=== PATIENT | male | born 1940 | race Caucasian/White ===

== ENCOUNTER 2017-07-17 16:22 | Inpatient (IN) ==
[2017-07-17] MEDS ORDERED: ASPIRIN 325 MG TABLET PO STA (17:48)
[2017-07-17] MEDS ORDERED: FUROSEMIDE 100 MG/10 ML VIAL IV STA (17:48)
[2017-07-17] MEDS ORDERED: MORPHINE 2 MG/1 ML SYRINGE IV STA (17:48)
[2017-07-17] MEDS ORDERED: methylPREDNISolone SOD SUC 125 MG/2 ML VIAL IV STA (17:48)
[2017-07-17] MEDS ORDERED: ONDANSETRON 4 MG/2 ML VIAL IV STA (17:48)
[2017-07-17 18:00] LABS: Basophils % 0.7 % (0.0-0.8); Eosinophils # 0.2 10*3/uL (0.0-0.87); Eosinophils % 3.2 % (0.00-10.9); Hematocrit 45.6 VOL% (42.0-52.0); Hemoglobin 14.6 GM/DL (14.0-18.0); Immature Granulocytes % 0.2 %; Immature Granulocytes Absolute 0.01 #; Lymphocytes # 1.6 10*3/uL (1.4-4.0); Lymphocytes % 29.4 % (21.2-54.2); Mean Corpuscular Hemoglobin 31 PG (27-34); Mean Corpuscular Volume 97.9 FL (87-102); Mean Platelet Volume 10.6 FL (9.6-12.0); Monocytes # 0.6 10*3/uL (0.11-0.8); Monocytes % 10.6 % (1.7-12.7); Neutrophils # 3.1 10*3/uL (1.4-7.4); Neutrophils % 55.9 % (38.7-73.9); Platelet Count 158 T/CUMM (130-400); Red Blood Count 4.66 MC/CUMM (3.8-5.5); Red Cell Distribution Width 15.4 % (9.3-17.3); White Blood Count 5.6 T/CUMM (4-12)
[2017-07-17] MEDS ORDERED: ALBUTEROL 2.5 MG/3 ML NEB RESP TX SCH (18:00)
[2017-07-17 18:09] LABS: INR 1.4; PT Patient Result 14.9 SECS
[2017-07-17 18:12] LABS: ABG Base Excess 6.1 MMOL/L (-2.5-2.5); ABG Oxygen Saturation 94.4 % (95-100); ABG PCO2 40.5 MM HG (35-48); ABG PH 7.487 (7.35-7.45); ABG PO2 68.8 MM HG (80-95); ABG TCO2 31.2 MMOL/L (23-27)
[2017-07-17] MEDS ORDERED: FUROSEMIDE 40 MG/4 ML VIAL ONE (18:17)
[2017-07-17] MEDS ORDERED: ASPIRIN 325 MG TABLET ONE (18:18)
[2017-07-17] MEDS ORDERED: MORPHINE 2 MG/1 ML SYRINGE ONE (18:18)
[2017-07-17] MEDS ORDERED: ONDANSETRON 4 MG/2 ML VIAL ONE (18:18)
[2017-07-17] MEDS ORDERED: FUROSEMIDE 20 MG/2 ML VIAL ONE (18:18)
[2017-07-17] MEDS ORDERED: methylPREDNISolone SOD SUC 125 MG/2 ML VIAL ONE (18:20)
[2017-07-17 18:23] LABS: Albumin 3.8 G/DL (3.4-5.0); Bilirubin,Total 1.5 MG/DL (0.2-1.0); Calcium 9.8 MG/DL (8.5-10.1); Magnesium 1.9 MG/DL (1.8-2.4); Osmolality,Calculated 273.4 MOS/KG (273-304); Potassium 5.2 MMOL/L (3.5-5.1); Total Protein 7.6 G/DL (6.4-8.3); Troponin I Only 0.034 NG/ML (0.00-0.045)
[2017-07-17 18:53] LABS: Apearance,Urine CLEAR (Clear); Bilirubin,Urine Negative (Negative); Blood, Urine Negative (Negative); Glucose,Urine (UA) Negative (Negative); Ketones,Urine Negative (Negative); Nitrite,Urine Negative (Negative); Protein,Urine Negative; Urine Color Straw (Yellow); Urine Specific Gravity 1.006 (1.001-1.035); Urine Urobilinogen < 2.0 EU/DL (0.2-1.0); WBC,Urine <1 /HPF (0-6)
[2017-07-18] MEDS ORDERED: ALBUTEROL/IPRATROPIUM 3 ML NEB RESP TX PRN (00:01)
[2017-07-18] MEDS ORDERED: DEXTROSE 50% 25 GM/50 ML VIAL IV PRN (00:01)
[2017-07-18] MEDS ORDERED: ONDANSETRON 4 MG/2 ML VIAL IV PRN (00:01)
[2017-07-18] MEDS ORDERED: MORPHINE 2 MG/1 ML SYRINGE IV PRN (00:01)
[2017-07-18] MEDS ORDERED: GLUCAGON 1 MG VIAL IM PRN (00:01)
[2017-07-18] MEDS ORDERED: PROMETHAZINE 25 MG/1 ML VIAL IM PRN (00:01)
[2017-07-18] MEDS ORDERED: ACETAMINOPHEN 325 MG TABLET PO PRN (00:01)
[2017-07-18] MEDS ORDERED: cefTRIAXone 1,000 MG VIAL ONE (00:26)
[2017-07-18] MEDS: SODIUM CHLORIDE 0.9% 1,000 ML IV SCH (00:36)
[2017-07-18] MEDS: cefTRIAXone 1,000 MG in SYRINGE 1 EACH IV SCH (00:37)
[2017-07-18] MEDS ORDERED: AZITHROMYCIN INJ 500 MG in SODIUM CHLORIDE 0.45% 250 ML IV SCH (01:00)
[2017-07-18] MEDS ORDERED: AZITHROMYCIN 500 MG VIAL IV ONE (01:55)
[2017-07-18] MEDS ORDERED: methylPREDNISolone SOD SUC 40 MG/1 ML VIAL ONE ×2 (02:45→09:51)
[2017-07-18] MEDS: methylPREDNISolone SOD SUC 40 MG/1 ML VIAL IV SCH ×3 (02:49→18:05)
[2017-07-18 04:31] LABS: Hematocrit 41.3 VOL% (42.0-52.0); Hemoglobin 13.2 GM/DL (14.0-18.0); Immature Granulocytes % 0.4 %; Immature Granulocytes Absolute 0.02 #; Lymphocytes # 0.2 10*3/uL (1.4-4.0); Lymphocytes % 5.2 % (21.2-54.2); Mean Corpuscular Hemoglobin 32 PG (27-34); Mean Corpuscular Volume 98.6 FL (87-102); Mean Platelet Volume 11.1 FL (9.6-12.0); Monocytes # 0.1 10*3/uL (0.11-0.8); Monocytes % 1.5 % (1.7-12.7); Neutrophils # 4.3 10*3/uL (1.4-7.4); Neutrophils % 92.9 % (38.7-73.9); Platelet Count 148 T/CUMM (130-400); Red Blood Count 4.19 MC/CUMM (3.8-5.5); Red Cell Distribution Width 15.4 % (9.3-17.3); White Blood Count 4.6 T/CUMM (4-12)
[2017-07-18 04:46] LABS: Albumin 3.5 G/DL (3.4-5.0); Calcium 8.9 MG/DL (8.5-10.1); Magnesium 1.7 MG/DL (1.8-2.4); Osmolality,Calculated 290.5 MOS/KG (273-304); Potassium 4.3 MMOL/L (3.5-5.1); Total Protein 6.9 G/DL (6.4-8.3); VLDL CHOLESTEROL 15.2 MG/DL
[2017-07-18 05:45] LABS: Eosinophils 2 % (0-10); Hypochromasia 1+; Lymphocytes 4 % (20-55); Segmented Neutrophils 90 % (50-85); Total Cells Counted 100
[2017-07-18 05:46] LABS: Microcytosis 1+
[2017-07-18] MEDS ORDERED: ENOXAPARIN 40 MG/0.4 ML SYRINGE ONE (06:06)
[2017-07-18] MEDS: ENOXAPARIN 40 MG/0.4 ML SYRINGE SUBCUT SCH (06:09)
[2017-07-18] MEDS ORDERED: FUROSEMIDE 20 MG/2 ML VIAL ONE (08:15)
[2017-07-18] MEDS: FUROSEMIDE 20 MG/2 ML VIAL IV SCH ×2 (08:20→18:12)
[2017-07-18] MEDS ORDERED: DOCUSATE SODIUM 100 MG CAPSULE ONE (08:51)
[2017-07-18] MEDS ORDERED: PANTOPRAZOLE 40 MG TABLET PO ONE (08:52)
[2017-07-18] MEDS: PANTOPRAZOLE 40 MG TABLET PO SCH (09:08)
[2017-07-18] MEDS: DOCUSATE SODIUM 100 MG CAPSULE PO SCH ×2 (09:08→22:03)
[2017-07-18] MEDS ORDERED: INSULIN REGULAR 100 UNIT/ML ONE ×2 (09:29→11:40)
[2017-07-18] MEDS: INSULIN REGULAR 100 UNIT/ML SUBCUT SCH ×4 (09:33→22:03)
[2017-07-18] MEDS ORDERED: FUROSEMIDE 40 MG/4 ML VIAL ONE (17:45)
[2017-07-18] MEDS: WARFARIN 3 MG TABLET PO SCH (18:05)
[2017-07-18] MEDS: rOPINIRole 1 MG TABLET PO SCH (18:05)
[2017-07-18 18:35] LABS: Troponin I Only 0.031 NG/ML (0.00-0.045)
[2017-07-18] MEDS ORDERED: SACUBITRIL/VALSARTAN 49-51 MG TABLET PO SCH (21:00)
[2017-07-18] MEDS: ATORVASTATIN 80 MG TABLET PO SCH (22:03)
[2017-07-18] MEDS: SACUBITRIL/VALSARTAN 49-51 MG TABLET PO SCH (22:04)
[2017-07-18] MEDS: GLIMEPIRIDE 2 MG TABLET PO SCH (22:04)
[2017-07-18] MEDS: clonazePAM 0.5 MG TABLET PO PRN (22:08)
[2017-07-18 23:39] LABS: Troponin I Only 0.072 NG/ML (0.00-0.045)
[2017-07-19] MEDS: SODIUM CHLORIDE 0.9% 1,000 ML IV SCH (00:36)
[2017-07-19] MEDS: methylPREDNISolone SOD SUC 40 MG/1 ML VIAL IV SCH ×3 (01:14→18:38)
[2017-07-19] MEDS: cefTRIAXone 1,000 MG in SYRINGE 1 EACH IV SCH (01:14)
[2017-07-19 04:07] LABS: CKMB % 2.4 %
[2017-07-19 04:08] LABS: Troponin I Only 0.273 NG/ML (0.00-0.045)
[2017-07-19 04:20] LABS: Calcium 8.8 MG/DL (8.5-10.1); Magnesium 2.1 MG/DL (1.8-2.4); Osmolality,Calculated 294.2 MOS/KG (273-304); Potassium 4.1 MMOL/L (3.5-5.1)
[2017-07-19] MEDS: ENOXAPARIN 40 MG/0.4 ML SYRINGE SUBCUT SCH (06:54)
[2017-07-19 07:09] LABS: INR 1.4; PT Patient Result 15.1 SECS
[2017-07-19] MEDS ORDERED: WARFARIN 5 MG TABLET PO ONE (07:17)
[2017-07-19] MEDS ORDERED: FUROSEMIDE 40 MG/4 ML VIAL IV SCH (08:00)
[2017-07-19] MEDS: INSULIN REGULAR 100 UNIT/ML SUBCUT SCH ×4 (09:00→21:35)
[2017-07-19] MEDS: FUROSEMIDE 40 MG/4 ML VIAL IV SCH (09:00)
[2017-07-19 12:05] LABS: CKMB % 2.8 %
[2017-07-19 12:09] LABS: Troponin I Only 0.63 NG/ML (0.00-0.045)
[2017-07-19] MEDS: VENLAFAXINE XR 75 MG CAPSULE PO SCH (13:41)
[2017-07-19 13:42] LABS: CKMB % 2.7 %
[2017-07-19] MEDS: ALLOPURINOL 100 MG TABLET PO SCH (13:42)
[2017-07-19] MEDS: ASPIRIN EC 325 MG TABLET PO SCH (13:42)
[2017-07-19] MEDS: POTASSIUM CHLORIDE 10 MEQ TABLET PO SCH (13:42)
[2017-07-19] MEDS: SACUBITRIL/VALSARTAN 49-51 MG TABLET PO SCH ×2 (13:42→21:56)
[2017-07-19 13:43] LABS: Troponin I Only 0.612 NG/ML (0.00-0.045)
[2017-07-19] MEDS: PANTOPRAZOLE 40 MG TABLET PO SCH (13:43)
[2017-07-19] MEDS: ATENOLOL 25 MG TABLET PO SCH (13:43)
[2017-07-19] MEDS: GLIMEPIRIDE 2 MG TABLET PO SCH ×2 (13:43→21:55)
[2017-07-19] MEDS: DOCUSATE SODIUM 100 MG CAPSULE PO SCH ×2 (13:43→21:57)
[2017-07-19] MEDS: WARFARIN 3 MG TABLET PO SCH (18:37)
[2017-07-19] MEDS: clonazePAM 0.5 MG TABLET PO PRN (18:37)
[2017-07-19] MEDS: rOPINIRole 1 MG TABLET PO SCH (18:38)
[2017-07-19] MEDS: INSULIN GLARGINE 100 UNIT/ML SUBCUT SCH (21:36)
[2017-07-19] MEDS: ATORVASTATIN 80 MG TABLET PO SCH (21:56)
[2017-07-19] MEDS: CLORAZEPATE 3.75 MG TABLET PO PRN (21:56)
[2017-07-20] MEDS: SODIUM CHLORIDE 0.9% 1,000 ML IV SCH ×2 (00:22→23:58)
[2017-07-20] MEDS: methylPREDNISolone SOD SUC 40 MG/1 ML VIAL IV SCH ×3 (04:15→22:51)
[2017-07-20] MEDS: cefTRIAXone 1,000 MG in SYRINGE 1 EACH IV SCH (04:16)
[2017-07-20 04:28] LABS: Basophils % 0.1 % (0.0-0.8); Hematocrit 40.7 VOL% (42.0-52.0); Hemoglobin 13.2 GM/DL (14.0-18.0); Immature Granulocytes % 0.5 %; Immature Granulocytes Absolute 0.06 #; Lymphocytes # 0.6 10*3/uL (1.4-4.0); Lymphocytes % 5.2 % (21.2-54.2); Mean Corpuscular HGB Conc 32.4 GM/DL (32-36); Mean Corpuscular Hemoglobin 32 PG (27-34); Mean Corpuscular Volume 98.5 FL (87-102); Mean Platelet Volume 10.9 FL (9.6-12.0); Monocytes # 0.3 10*3/uL (0.11-0.8); Neutrophils # 10.2 10*3/uL (1.4-7.4); Neutrophils % 91.2 % (38.7-73.9); Platelet Count 165 T/CUMM (130-400); Red Blood Count 4.13 MC/CUMM (3.8-5.5); Red Cell Distribution Width 15.5 % (9.3-17.3); White Blood Count 11.2 T/CUMM (4-12)
[2017-07-20 05:06] LABS: Calcium 8.6 MG/DL (8.5-10.1); Magnesium 2.2 MG/DL (1.8-2.4); Potassium 4.1 MMOL/L (3.5-5.1)
[2017-07-20 05:11] LABS: INR 1.7; PT Patient Result 17.7 SECS
[2017-07-20 05:12] LABS: Lymphocytes 5 % (20-55); Segmented Neutrophils 93 % (50-85); Total Cells Counted 100
[2017-07-20 05:13] LABS: Hypochromasia 1+; Microcytosis 1+; Ovalocytes Slight; Platelet Estimate Adequate
[2017-07-20] MEDS: INSULIN REGULAR 100 UNIT/ML SUBCUT SCH ×4 (09:38→22:50)
[2017-07-20] MEDS: VENLAFAXINE XR 75 MG CAPSULE PO SCH (10:54)
[2017-07-20] MEDS: PANTOPRAZOLE 40 MG TABLET PO SCH (10:55)
[2017-07-20] MEDS: ATENOLOL 25 MG TABLET PO SCH (10:55)
[2017-07-20] MEDS: GLIMEPIRIDE 2 MG TABLET PO SCH ×2 (10:55→22:53)
[2017-07-20] MEDS: ASPIRIN EC 325 MG TABLET PO SCH (10:55)
[2017-07-20] MEDS: SACUBITRIL/VALSARTAN 49-51 MG TABLET PO SCH ×2 (10:55→22:52)
[2017-07-20] MEDS: FUROSEMIDE 40 MG/4 ML VIAL IV SCH (10:56)
[2017-07-20] MEDS: POTASSIUM CHLORIDE 10 MEQ TABLET PO SCH (10:56)
[2017-07-20] MEDS: DOCUSATE SODIUM 100 MG CAPSULE PO SCH ×2 (10:56→22:51)
[2017-07-20] MEDS: ALLOPURINOL 100 MG TABLET PO SCH (10:56)
[2017-07-20] MEDS: WARFARIN 3 MG TABLET PO SCH (18:26)
[2017-07-20] MEDS: rOPINIRole 1 MG TABLET PO SCH (18:26)
[2017-07-20] MEDS: CLORAZEPATE 3.75 MG TABLET PO PRN (18:27)
[2017-07-20] MEDS: INSULIN GLARGINE 100 UNIT/ML SUBCUT SCH (22:50)
[2017-07-20] MEDS: ATORVASTATIN 80 MG TABLET PO SCH (22:50)
[2017-07-21 05:07] LABS: Hematocrit 44.9 VOL% (42.0-52.0); Hemoglobin 14.6 GM/DL (14.0-18.0); Immature Granulocytes % 0.4 %; Immature Granulocytes Absolute 0.04 #; Lymphocytes # 0.6 10*3/uL (1.4-4.0); Lymphocytes % 6.1 % (21.2-54.2); Mean Corpuscular HGB Conc 32.5 GM/DL (32-36); Mean Corpuscular Hemoglobin 32 PG (27-34); Mean Corpuscular Volume 97.2 FL (87-102); Monocytes # 0.3 10*3/uL (0.11-0.8); Monocytes % 3.4 % (1.7-12.7); Neutrophils % 90.1 % (38.7-73.9); Platelet Count 179 T/CUMM (130-400); Red Blood Count 4.62 MC/CUMM (3.8-5.5); Red Cell Distribution Width 15.3 % (9.3-17.3)
[2017-07-21 05:14] LABS: INR 2.7
[2017-07-21 05:23] LABS: PT Patient Result 27.7 SECS
[2017-07-21 05:46] LABS: Calcium 8.7 MG/DL (8.5-10.1); Magnesium 2.3 MG/DL (1.8-2.4); Osmolality,Calculated 294.2 MOS/KG (273-304); Potassium 4.2 MMOL/L (3.5-5.1)
[2017-07-21] MEDS: cefTRIAXone 1,000 MG in SYRINGE 1 EACH IV SCH (05:46)
[2017-07-21 05:47] LABS: Calcium 8.8 MG/DL (8.5-10.1); Osmolality,Calculated 296.2 MOS/KG (273-304); Potassium 4.2 MMOL/L (3.5-5.1)
[2017-07-21] MEDS: methylPREDNISolone SOD SUC 40 MG/1 ML VIAL IV SCH ×3 (05:51→21:34)
[2017-07-21] MEDS: ASPIRIN EC 325 MG TABLET PO SCH (08:57)
[2017-07-21] MEDS: PANTOPRAZOLE 40 MG TABLET PO SCH (08:57)
[2017-07-21] MEDS: clonazePAM 0.5 MG TABLET PO PRN (08:58)
[2017-07-21] MEDS: SACUBITRIL/VALSARTAN 49-51 MG TABLET PO SCH ×2 (08:58→21:36)
[2017-07-21] MEDS: GLIMEPIRIDE 2 MG TABLET PO SCH ×2 (08:58→21:36)
[2017-07-21] MEDS: DOCUSATE SODIUM 100 MG CAPSULE PO SCH ×2 (08:58→21:36)
[2017-07-21] MEDS: ATENOLOL 25 MG TABLET PO SCH (08:58)
[2017-07-21] MEDS: POTASSIUM CHLORIDE 10 MEQ TABLET PO SCH (08:58)
[2017-07-21] MEDS: VENLAFAXINE XR 75 MG CAPSULE PO SCH (08:58)
[2017-07-21] MEDS: INSULIN REGULAR 100 UNIT/ML SUBCUT SCH ×4 (08:59→21:34)
[2017-07-21] MEDS: FUROSEMIDE 40 MG/4 ML VIAL IV SCH ×2 (08:59→16:24)
[2017-07-21] MEDS: ALLOPURINOL 100 MG TABLET PO SCH (08:59)
[2017-07-21] MEDS: ALBUTEROL/IPRATROPIUM 3 ML NEB RESP TX SCH ×3 (12:13→21:26)
[2017-07-21] MEDS: rOPINIRole 1 MG TABLET PO SCH (18:42)
[2017-07-21] MEDS: CLORAZEPATE 3.75 MG TABLET PO PRN (18:43)
[2017-07-21] MEDS: ACETYLCYSTEINE 600 MG CAPSULE PO SCH (21:35)
[2017-07-21] MEDS: INSULIN GLARGINE 100 UNIT/ML SUBCUT SCH (21:35)
[2017-07-21] MEDS: ATORVASTATIN 80 MG TABLET PO SCH (21:36)
[2017-07-21] MEDS: CARVEDILOL 3.125 MG TABLET PO SCH (21:39)
[2017-07-22] MEDS: SODIUM CHLORIDE 0.9% 1,000 ML IV SCH
[2017-07-22] MEDS: ALBUTEROL/IPRATROPIUM 3 ML NEB RESP TX SCH ×7 (00:42→22:54)
[2017-07-22] MEDS: methylPREDNISolone SOD SUC 40 MG/1 ML VIAL IV SCH ×3 (04:52→21:55)
[2017-07-22] MEDS: cefTRIAXone 1,000 MG in SYRINGE 1 EACH IV SCH (04:52)
[2017-07-22 04:57] LABS: Basophils % 0.1 % (0.0-0.8); Hematocrit 44.6 VOL% (42.0-52.0); Hemoglobin 14.8 GM/DL (14.0-18.0); Immature Granulocytes % 0.6 %; Immature Granulocytes Absolute 0.07 #; Lymphocytes # 0.3 10*3/uL (1.4-4.0); Lymphocytes % 2.5 % (21.2-54.2); Mean Corpuscular HGB Conc 33.2 GM/DL (32-36); Mean Corpuscular Hemoglobin 31 PG (27-34); Mean Corpuscular Volume 94.3 FL (87-102); Mean Platelet Volume 10.9 FL (9.6-12.0); Monocytes # 0.5 10*3/uL (0.11-0.8); Neutrophils % 91.8 % (38.7-73.9); Platelet Count 173 T/CUMM (130-400); Red Blood Count 4.73 MC/CUMM (3.8-5.5); Red Cell Distribution Width 15.2 % (9.3-17.3); White Blood Count 10.9 T/CUMM (4-12)
[2017-07-22 05:09] LABS: INR 3.4
[2017-07-22 05:26] LABS: Calcium 8.7 MG/DL (8.5-10.1); Osmolality,Calculated 293.5 MOS/KG (273-304); Potassium 3.7 MMOL/L (3.5-5.1)
[2017-07-22 05:27] LABS: Calcium 8.7 MG/DL (8.5-10.1); Magnesium 2.2 MG/DL (1.8-2.4); Osmolality,Calculated 295.4 MOS/KG (273-304); Potassium 3.7 MMOL/L (3.5-5.1)
[2017-07-22 06:05] LABS: Anisocytosis 1+; Band Neutrophils 1 % (0-10); Lymphocytes 3 % (20-55); Myelocytes 1 %; Segmented Neutrophils 93 % (50-85); Total Cells Counted 100
[2017-07-22 06:06] LABS: Platelet Estimate Normal; Poikilocytosis Few
[2017-07-22] MEDS: ACETYLCYSTEINE 600 MG CAPSULE PO SCH ×2 (08:56→21:55)
[2017-07-22] MEDS: PANTOPRAZOLE 40 MG TABLET PO SCH (08:56)
[2017-07-22] MEDS: VENLAFAXINE XR 75 MG CAPSULE PO SCH (08:57)
[2017-07-22] MEDS: CARVEDILOL 3.125 MG TABLET PO SCH ×2 (08:57→21:55)
[2017-07-22] MEDS: DOCUSATE SODIUM 100 MG CAPSULE PO SCH ×2 (08:57→21:55)
[2017-07-22] MEDS: GLIMEPIRIDE 2 MG TABLET PO SCH ×2 (08:57→21:55)
[2017-07-22] MEDS: clonazePAM 0.5 MG TABLET PO PRN ×2 (08:57→21:57)
[2017-07-22] MEDS: SACUBITRIL/VALSARTAN 49-51 MG TABLET PO SCH ×2 (08:57→21:55)
[2017-07-22] MEDS: POTASSIUM CHLORIDE 10 MEQ TABLET PO SCH (08:57)
[2017-07-22] MEDS: ASPIRIN EC 325 MG TABLET PO SCH (08:57)
[2017-07-22] MEDS: INSULIN REGULAR 100 UNIT/ML SUBCUT SCH ×4 (08:57→21:56)
[2017-07-22] MEDS: ALLOPURINOL 100 MG TABLET PO SCH (08:57)
[2017-07-22] MEDS: FUROSEMIDE 40 MG/4 ML VIAL IV SCH (08:58)
[2017-07-22] MEDS ORDERED: SODIUM CHLORIDE 0.9% 250 ML IV ONE (10:09)
[2017-07-22] MEDS ORDERED: SODIUM CHLORIDE 0.9% 1,000 ML IV SCH (10:30)
[2017-07-22] MEDS ORDERED: MAGNESIUM SULF RIDER 2 GM in PREMIX 1 EACH IV PRN (10:55)
[2017-07-22] MEDS ORDERED: POTASSIUM CHLORIDE RIDER 10 MEQ in PREMIX 1 EACH IV PRN (10:55)
[2017-07-22] MEDS ORDERED: POTASSIUM CHLORIDE 20 MEQ TABLET PO PRN (11:19)
[2017-07-22] MEDS: FUROSEMIDE 40 MG TABLET PO SCH ×2 (15:27→16:26)
[2017-07-22] MEDS: rOPINIRole 1 MG TABLET PO SCH (18:10)
[2017-07-22] MEDS: ATORVASTATIN 80 MG TABLET PO SCH (21:55)
[2017-07-22] MEDS: INSULIN GLARGINE 100 UNIT/ML SUBCUT SCH (21:55)
[2017-07-23] MEDS: ALBUTEROL/IPRATROPIUM 3 ML NEB RESP TX SCH ×5 (03:23→20:04)
[2017-07-23 05:15] LABS: Hematocrit 44.9 VOL% (42.0-52.0); Hemoglobin 14.7 GM/DL (14.0-18.0); Immature Granulocytes % 0.4 %; Immature Granulocytes Absolute 0.04 #; Lymphocytes # 0.3 10*3/uL (1.4-4.0); Lymphocytes % 2.8 % (21.2-54.2); Mean Corpuscular HGB Conc 32.7 GM/DL (32-36); Mean Corpuscular Hemoglobin 31 PG (27-34); Mean Corpuscular Volume 95.7 FL (87-102); Mean Platelet Volume 10.9 FL (9.6-12.0); Monocytes # 0.4 10*3/uL (0.11-0.8); Monocytes % 4.4 % (1.7-12.7); Neutrophils # 8.4 10*3/uL (1.4-7.4); Neutrophils % 92.4 % (38.7-73.9); Platelet Count 163 T/CUMM (130-400); Red Blood Count 4.69 MC/CUMM (3.8-5.5); Red Cell Distribution Width 15.1 % (9.3-17.3); White Blood Count 9.1 T/CUMM (4-12)
[2017-07-23 05:26] LABS: INR 2.6
[2017-07-23 05:28] LABS: PT Patient Result 26.8 SECS
[2017-07-23 05:41] LABS: Lymphocytes 1 % (20-55); Segmented Neutrophils 96 % (50-85); Total Cells Counted 100
[2017-07-23 05:42] LABS: Hypochromasia 1+
[2017-07-23 05:44] LABS: Microcytosis Slight
[2017-07-23 05:53] LABS: Calcium 8.5 MG/DL (8.5-10.1); Magnesium 2.3 MG/DL (1.8-2.4); Osmolality,Calculated 296.1 MOS/KG (273-304); Potassium 4.2 MMOL/L (3.5-5.1)
[2017-07-23] MEDS: cefTRIAXone 1,000 MG in SYRINGE 1 EACH IV SCH (06:17)
[2017-07-23] MEDS: methylPREDNISolone SOD SUC 40 MG/1 ML VIAL IV SCH ×3 (06:17→21:06)
[2017-07-23] MEDS ORDERED: HEPARIN/NACL 0.9% 2 UNITS/ML 2,000 ML IV ONE (06:57)
[2017-07-23] MEDS ORDERED: LIDOCAINE 1% 20 ML VIAL ONE (06:57)
[2017-07-23] MEDS ORDERED: diphenhydrAMINE CAP 50 MG CAPSULE PO ONE (07:00)
[2017-07-23] MEDS ORDERED: DIAZEPAM 5 MG TABLET PO ONE (07:00)
[2017-07-23] MEDS: CARVEDILOL 3.125 MG TABLET PO SCH ×3 (07:04→21:05)
[2017-07-23] MEDS: ASPIRIN EC 325 MG TABLET PO SCH ×2 (07:04→11:07)
[2017-07-23] MEDS ORDERED: MIDAZOLAM 2 MG/2 ML VIAL ONE (08:13)
[2017-07-23] MEDS ORDERED: HYDROmorphone 2 MG/1 ML VIAL ONE (08:13)
[2017-07-23] MEDS: INSULIN REGULAR 100 UNIT/ML SUBCUT SCH ×4 (10:27→21:06)
[2017-07-23] MEDS: SACUBITRIL/VALSARTAN 49-51 MG TABLET PO SCH ×2 (11:05→21:04)
[2017-07-23] MEDS: ALLOPURINOL 100 MG TABLET PO SCH (11:06)
[2017-07-23] MEDS: ACETYLCYSTEINE 600 MG CAPSULE PO SCH ×2 (11:06→21:07)
[2017-07-23] MEDS: FUROSEMIDE 40 MG TABLET PO SCH ×2 (11:06→16:05)
[2017-07-23] MEDS: PANTOPRAZOLE 40 MG TABLET PO SCH (11:06)
[2017-07-23] MEDS: VENLAFAXINE XR 75 MG CAPSULE PO SCH (11:06)
[2017-07-23] MEDS: GLIMEPIRIDE 2 MG TABLET PO SCH ×2 (11:06→21:05)
[2017-07-23] MEDS: DOCUSATE SODIUM 100 MG CAPSULE PO SCH ×2 (11:07→21:05)
[2017-07-23] MEDS: rOPINIRole 1 MG TABLET PO SCH (18:26)
[2017-07-23] MEDS: ATORVASTATIN 80 MG TABLET PO SCH (21:03)
[2017-07-23] MEDS: CLORAZEPATE 3.75 MG TABLET PO PRN (21:05)
[2017-07-23] MEDS: INSULIN GLARGINE 100 UNIT/ML SUBCUT SCH (21:06)
[2017-07-24] MEDS: ALBUTEROL/IPRATROPIUM 3 ML NEB RESP TX SCH ×6 (01:43→20:17)
[2017-07-24 04:51] LABS: Calcium 8.6 MG/DL (8.5-10.1); Osmolality,Calculated 297.1 MOS/KG (273-304); Potassium 4.7 MMOL/L (3.5-5.1)
[2017-07-24] MEDS: cefTRIAXone 1,000 MG in SYRINGE 1 EACH IV SCH (05:38)
[2017-07-24] MEDS: methylPREDNISolone SOD SUC 40 MG/1 ML VIAL IV SCH ×3 (05:39→21:26)
[2017-07-24] MEDS: SACUBITRIL/VALSARTAN 49-51 MG TABLET PO SCH ×2 (09:56→21:23)
[2017-07-24] MEDS: ASPIRIN EC 325 MG TABLET PO SCH (09:56)
[2017-07-24] MEDS: PANTOPRAZOLE 40 MG TABLET PO SCH (09:56)
[2017-07-24] MEDS: GLIMEPIRIDE 2 MG TABLET PO SCH ×2 (09:56→21:24)
[2017-07-24] MEDS: ACETYLCYSTEINE 600 MG CAPSULE PO SCH ×2 (09:56→21:23)
[2017-07-24] MEDS: VENLAFAXINE XR 75 MG CAPSULE PO SCH (09:56)
[2017-07-24] MEDS: DOCUSATE SODIUM 100 MG CAPSULE PO SCH ×2 (09:56→21:24)
[2017-07-24] MEDS: ALLOPURINOL 100 MG TABLET PO SCH (09:56)
[2017-07-24] MEDS: FUROSEMIDE 40 MG TABLET PO SCH ×2 (09:56→16:30)
[2017-07-24] MEDS: INSULIN REGULAR 100 UNIT/ML SUBCUT SCH ×4 (09:57→21:29)
[2017-07-24] MEDS: CARVEDILOL 3.125 MG TABLET PO SCH ×2 (09:57→21:24)
[2017-07-24] MEDS: CETIRIZINE 10 MG TABLET PO SCH (12:09)
[2017-07-24] MEDS ORDERED: MORPHINE 10 MG/1 ML VIAL IV PRN (14:30)
[2017-07-24] MEDS: rOPINIRole 1 MG TABLET PO SCH (18:00)
[2017-07-24] MEDS: clonazePAM 0.5 MG TABLET PO PRN (21:23)
[2017-07-24] MEDS: CLORAZEPATE 3.75 MG TABLET PO PRN (21:24)
[2017-07-24] MEDS: ATORVASTATIN 80 MG TABLET PO SCH (21:24)
[2017-07-24] MEDS: INSULIN GLARGINE 100 UNIT/ML SUBCUT SCH (21:28)
[2017-07-25] MEDS: ALBUTEROL/IPRATROPIUM 3 ML NEB RESP TX SCH ×4 (00:55→11:03)
[2017-07-25 05:01] LABS: Basophils % 0.1 % (0.0-0.8); Hematocrit 44.7 VOL% (42.0-52.0); Hemoglobin 14.8 GM/DL (14.0-18.0); Immature Granulocytes % 0.7 %; Immature Granulocytes Absolute 0.06 #; Lymphocytes # 0.3 10*3/uL (1.4-4.0); Lymphocytes % 3.2 % (21.2-54.2); Mean Corpuscular HGB Conc 33.1 GM/DL (32-36); Mean Corpuscular Hemoglobin 32 PG (27-34); Mean Corpuscular Volume 95.9 FL (87-102); Mean Platelet Volume 10.6 FL (9.6-12.0); Monocytes # 0.4 10*3/uL (0.11-0.8); Monocytes % 4.7 % (1.7-12.7); Neutrophils # 7.6 10*3/uL (1.4-7.4); Neutrophils % 91.3 % (38.7-73.9); Platelet Count 148 T/CUMM (130-400); Red Blood Count 4.66 MC/CUMM (3.8-5.5); Red Cell Distribution Width 15.3 % (9.3-17.3); White Blood Count 8.3 T/CUMM (4-12)
[2017-07-25 05:09] LABS: INR 1.5; PT Patient Result 15.5 SECS
[2017-07-25 05:23] LABS: Giant Platelets Few; Hypochromasia 1+; Lymphocytes 3 % (20-55); Microcytosis Slight; Platelet Estimate Normal; Segmented Neutrophils 94 % (50-85); Total Cells Counted 100
[2017-07-25 05:28] LABS: Calcium 8.6 MG/DL (8.5-10.1); Magnesium 2.4 MG/DL (1.8-2.4); Osmolality,Calculated 301.2 MOS/KG (273-304)
[2017-07-25] MEDS: cefTRIAXone 1,000 MG in SYRINGE 1 EACH IV SCH (05:49)
[2017-07-25] MEDS: methylPREDNISolone SOD SUC 40 MG/1 ML VIAL IV SCH (05:49)
[2017-07-25] MEDS: INSULIN REGULAR 100 UNIT/ML SUBCUT SCH ×2 (09:04→13:37)
[2017-07-25] MEDS: VENLAFAXINE XR 75 MG CAPSULE PO SCH (09:04)
[2017-07-25] MEDS: ASPIRIN EC 325 MG TABLET PO SCH (09:04)
[2017-07-25] MEDS: CARVEDILOL 3.125 MG TABLET PO SCH (09:05)
[2017-07-25] MEDS: FUROSEMIDE 40 MG TABLET PO SCH (09:05)
[2017-07-25] MEDS: CETIRIZINE 10 MG TABLET PO SCH (09:05)
[2017-07-25] MEDS: ALLOPURINOL 100 MG TABLET PO SCH (09:05)
[2017-07-25] MEDS: GLIMEPIRIDE 2 MG TABLET PO SCH (09:05)
[2017-07-25] MEDS: PANTOPRAZOLE 40 MG TABLET PO SCH (09:05)
[2017-07-25] MEDS: SACUBITRIL/VALSARTAN 49-51 MG TABLET PO SCH (09:05)
[2017-07-25] MEDS: DOCUSATE SODIUM 100 MG CAPSULE PO SCH (09:16)
[2017-07-25] MEDS: ACETYLCYSTEINE 600 MG CAPSULE PO SCH (09:16)
[2017-07-25 12:10] VITALS: BP 102/59
== END 2017-07-25 13:54 | disposition home or self-care (01) | DRG 286 ==
LOC: N.ED 16:22 → N.EDINP 21:16 → N.TELEN 07-18 13:42
PROVIDERS: ADMIT Family Medicine; ATTEND Family Medicine

== ENCOUNTER 2020-11-05 12:41 | Inpatient (IN) ==
[2020-11-05] MEDS ORDERED: SODIUM CHLORIDE 0.9% 1,000 ML IV STA (12:58)
[2020-11-05] MEDS ORDERED: VANCOMYCIN INJ 1,500 MG in SODIUM CHLORIDE 0.9% 250 ML IV STA (13:02)
[2020-11-05] MEDS ORDERED: PIPERACILLIN/TAZOBACTAM 3,375 MG in SODIUM CHLORIDE 0.9% 100 ML IV STA (13:02)
[2020-11-05 13:27] LABS: Basophils % 0.2 % (0.0-0.8); Hematocrit 44.2 VOL% (42.0-52.0); Hemoglobin 14.1 GM/DL (14.0-18.0); Immature Granulocytes % 0.8 %; Immature Granulocytes Absolute 0.14 #; Lymphocytes # 0.7 10*3/uL (1.4-4.0); Mean Corpuscular HGB Conc 31.9 GM/DL (32-36); Mean Corpuscular Volume 99.5 FL (87-102); Mean Platelet Volume 10.7 FL (9.6-12.0); Monocytes % 5.3 % (1.7-12.7); Neutrophils % 89.7 % (38.7-73.9); Platelet Count 147 T/CUMM (130-400); Red Blood Count 4.44 MC/CUMM (3.8-5.5); Red Cell Distribution Width 15.8 % (9.3-17.3); White Blood Count 17.7 T/CUMM (4-12)
[2020-11-05 13:36] LABS: INR 1.3; PT Patient Result 14.7 SECS (9.8-11.9); Partial Thromboplastin Time 32.8 SECS (23.9-33.8)
[2020-11-05 13:53] LABS: Albumin 3.3 G/DL (3.4-5.0); Bilirubin,Total 1.2 MG/DL (0.2-1.0); Calcium 9.3 MG/DL (8.5-10.1); Osmolality,Calculated 287.2 MOS/KG (273-304); Potassium 4.1 MMOL/L (3.5-5.1); Total Protein 7.5 G/DL (6.4-8.2)
[2020-11-05 14:22] LABS: Band Neutrophils 3 % (0-10); Lymphocytes 6 % (20-55); Segmented Neutrophils 88 % (50-85); Total Cells Counted 100
[2020-11-05 14:23] LABS: Microcytosis Slight; Ovalocytes Slight; Platelet Estimate Normal
[2020-11-05 14:38] LABS: Bilirubin,Urine Negative (Negative); Blood, Urine Small mg/dL (Negative); Glucose,Urine (UA) Negative (Negative); Ketones,Urine Negative (Negative); Mucus,Urine Occasional /LPF (Occasional); Nitrite,Urine Negative (Negative); Protein,Urine 30 MG/DL; RBC,Urine 5 /HPF (0-4); Urine Appearance CLEAR (Clear); Urine Color Yellow (Yellow); Urine Specific Gravity 1.013 (1.001-1.035); Urine Urobilinogen < 2.0 EU/DL (0.2-1.0)
[2020-11-05] MEDS ORDERED: ACETAMINOPHEN 325 MG TABLET PO PRN (15:21)
[2020-11-05] MEDS ORDERED: GLUCAGON 1 MG VIAL IM PRN (15:21)
[2020-11-05] MEDS ORDERED: ONDANSETRON 4 MG/2 ML VIAL IV PRN (15:21)
[2020-11-05] MEDS ORDERED: DEXTROSE 50% 25 GM/50 ML VIAL IV PRN (15:21)
[2020-11-05] MEDS ORDERED: clonazePAM 0.5 MG TABLET PO PRN (15:25)
[2020-11-05] MEDS ORDERED: NITROGLYCERIN SL 0.4 MG TABLET SL PRN (15:28)
[2020-11-05] MEDS: FUROSEMIDE 40 MG TABLET PO SCH (17:26)
[2020-11-05] MEDS: INSULIN LISPRO 100 UNIT/ML SUBCUT SCH ×2 (17:30→20:49)
[2020-11-05] MEDS: SODIUM CHLORIDE 0.9% 1,000 ML IV SCH (19:08)
[2020-11-05] MEDS: ALBUTEROL/IPRATROPIUM 3 ML NEB RESP TX SCH (20:45)
[2020-11-05] MEDS: SACUBITRIL/VALSARTAN 49-51 MG TABLET PO SCH (20:50)
[2020-11-05] MEDS: INSULIN GLARGINE 100 UNIT/ML SUBCUT SCH (20:50)
[2020-11-05] MEDS: rOPINIRole 1 MG TABLET PO SCH (20:51)
[2020-11-05] MEDS: DOCUSATE SODIUM 100 MG CAPSULE PO SCH (20:51)
[2020-11-05] MEDS: carvediloL 3.125 MG TABLET PO SCH (20:51)
[2020-11-05] MEDS: ATORVASTATIN 80 MG TABLET PO SCH (20:51)
[2020-11-06] MEDS: PIPERACILLIN/TAZOBACTAM 3,375 MG in SODIUM CHLORIDE 0.9% 100 ML IV SCH ×4 (00:38→17:55)
[2020-11-06 05:13] LABS: INR 1.4; PT Patient Result 15.1 SECS (9.8-11.9)
[2020-11-06] MEDS: FUROSEMIDE 40 MG TABLET PO SCH ×2 (08:17→15:42)
[2020-11-06] MEDS: INSULIN LISPRO 100 UNIT/ML SUBCUT SCH ×4 (08:32→21:20)
[2020-11-06] MEDS: ALBUTEROL/IPRATROPIUM 3 ML NEB RESP TX SCH ×3 (09:28→23:19)
[2020-11-06] MEDS: SACUBITRIL/VALSARTAN 49-51 MG TABLET PO SCH ×2 (10:20→21:20)
[2020-11-06] MEDS: carvediloL 3.125 MG TABLET PO SCH ×2 (10:21→21:20)
[2020-11-06] MEDS: PANTOPRAZOLE 40 MG TABLET PO SCH (10:21)
[2020-11-06] MEDS: DOCUSATE SODIUM 100 MG CAPSULE PO SCH ×2 (10:23→21:20)
[2020-11-06] MEDS: allopurinoL 100 MG TABLET PO SCH (10:23)
[2020-11-06] MEDS: ASPIRIN EC 325 MG TABLET PO SCH (10:23)
[2020-11-06] MEDS: VENLAFAXINE XR 75 MG CAPSULE PO SCH (10:23)
[2020-11-06] MEDS: WARFARIN 3 MG TABLET PO SCH ×2 (10:50→15:39)
[2020-11-06] MEDS: MUPIROCIN 2% OINT 22 GM TUBE TOP SCH ×4 (10:51→21:19)
[2020-11-06 13:57] LABS: Basophils % 0.3 % (0.0-0.8); Eosinophils % 0.2 % (0.00-10.9); Hematocrit 37.3 VOL% (42.0-52.0); Immature Granulocytes % 0.5 %; Immature Granulocytes Absolute 0.05 #; Lymphocytes # 0.9 10*3/uL (1.4-4.0); Lymphocytes % 8.2 % (21.2-54.2); Mean Corpuscular HGB Conc 32.2 GM/DL (32-36); Mean Corpuscular Volume 101.4 FL (87-102); Mean Platelet Volume 10.8 FL (9.6-12.0); Monocytes % 7.6 % (1.7-12.7); Neutrophils % 83.2 % (38.7-73.9); Platelet Count 102 T/CUMM (130-400); Red Blood Count 3.68 MC/CUMM (3.8-5.5); Red Cell Distribution Width 15.7 % (9.3-17.3); White Blood Count 10.7 T/CUMM (4-12)
[2020-11-06 14:23] LABS: Calcium 8.2 MG/DL (8.5-10.1); Osmolality,Calculated 291.1 MOS/KG (273-304); Potassium 4.1 MMOL/L (3.5-5.1)
[2020-11-06] MEDS: VANCOMYCIN INJ 1,500 MG in SODIUM CHLORIDE 0.9% 500 ML IV SCH (15:39)
[2020-11-06] MEDS: methylPREDNISolone SOD SUC 40 MG/1 ML VIAL IV SCH (16:15)
[2020-11-06] MEDS: ATORVASTATIN 80 MG TABLET PO SCH (21:20)
[2020-11-06] MEDS: INSULIN GLARGINE 100 UNIT/ML SUBCUT SCH (21:21)
[2020-11-06] MEDS: rOPINIRole 1 MG TABLET PO SCH (21:22)
[2020-11-06] MEDS: SODIUM CHLORIDE 0.9% 1,000 ML IV SCH (21:59)
[2020-11-07] MEDS: PIPERACILLIN/TAZOBACTAM 3,375 MG in SODIUM CHLORIDE 0.9% 100 ML IV SCH ×3 (00:23→18:30)
[2020-11-07] MEDS: ALBUTEROL/IPRATROPIUM 3 ML NEB RESP TX SCH ×6 (03:42→23:49)
[2020-11-07] MEDS: methylPREDNISolone SOD SUC 40 MG/1 ML VIAL IV SCH ×2 (05:29→17:47)
[2020-11-07 06:08] LABS: INR 1.4; PT Patient Result 15.7 SECS (9.8-11.9)
[2020-11-07 06:08] LABS: Basophils % 0.1 % (0.0-0.8); Hematocrit 33.6 VOL% (42.0-52.0); Hemoglobin 11.2 GM/DL (14.0-18.0); Immature Granulocytes % 0.5 %; Immature Granulocytes Absolute 0.04 #; Lymphocytes # 0.5 10*3/uL (1.4-4.0); Lymphocytes % 7.1 % (21.2-54.2); Mean Corpuscular HGB Conc 33.3 GM/DL (32-36); Mean Corpuscular Volume 98.5 FL (87-102); Mean Platelet Volume 11.1 FL (9.6-12.0); Monocytes % 7.7 % (1.7-12.7); Neutrophils % 84.6 % (38.7-73.9); Platelet Count 113 T/CUMM (130-400); Red Blood Count 3.41 MC/CUMM (3.8-5.5); Red Cell Distribution Width 15.7 % (9.3-17.3); White Blood Count 7.5 T/CUMM (4-12)
[2020-11-07 06:34] LABS: Albumin 2.3 G/DL (3.4-5.0); Bilirubin,Total 0.7 MG/DL (0.2-1.0); Calcium 8.2 MG/DL (8.5-10.1); Osmolality,Calculated 293.5 MOS/KG (273-304); Total Protein 5.6 G/DL (6.4-8.2)
[2020-11-07] MEDS: FUROSEMIDE 40 MG TABLET PO SCH ×2 (07:23→17:48)
[2020-11-07] MEDS: INSULIN LISPRO 100 UNIT/ML SUBCUT SCH ×4 (09:13→20:54)
[2020-11-07] MEDS: ASPIRIN EC 325 MG TABLET PO SCH (09:51)
[2020-11-07] MEDS: VENLAFAXINE XR 75 MG CAPSULE PO SCH (09:51)
[2020-11-07] MEDS: SACUBITRIL/VALSARTAN 49-51 MG TABLET PO SCH ×2 (09:51→20:53)
[2020-11-07] MEDS: allopurinoL 100 MG TABLET PO SCH (09:51)
[2020-11-07] MEDS: PANTOPRAZOLE 40 MG TABLET PO SCH (09:52)
[2020-11-07] MEDS: MUPIROCIN 2% OINT 22 GM TUBE TOP SCH ×3 (09:52→20:54)
[2020-11-07] MEDS: carvediloL 3.125 MG TABLET PO SCH ×2 (09:52→20:54)
[2020-11-07] MEDS: DOCUSATE SODIUM 100 MG CAPSULE PO SCH ×2 (09:52→20:54)
[2020-11-07] MEDS: VANCOMYCIN INJ 1,500 MG in SODIUM CHLORIDE 0.9% 500 ML IV SCH (15:30)
[2020-11-07] MEDS: WARFARIN 3 MG TABLET PO SCH (17:48)
[2020-11-07] MEDS: INSULIN GLARGINE 100 UNIT/ML SUBCUT SCH (20:53)
[2020-11-07] MEDS: SODIUM CHLORIDE 0.9% 1,000 ML IV SCH ×2 (20:53→21:50)
[2020-11-07] MEDS: ATORVASTATIN 80 MG TABLET PO SCH (20:54)
[2020-11-07] MEDS: rOPINIRole 1 MG TABLET PO SCH (20:54)
[2020-11-08] MEDS: PIPERACILLIN/TAZOBACTAM 3,375 MG in SODIUM CHLORIDE 0.9% 100 ML IV SCH (02:14)
[2020-11-08] MEDS: methylPREDNISolone SOD SUC 40 MG/1 ML VIAL IV SCH ×2 (03:27→15:00)
[2020-11-08] MEDS: ALBUTEROL/IPRATROPIUM 3 ML NEB RESP TX SCH ×7 (03:36→23:00)
[2020-11-08 06:12] LABS: INR 1.7; PT Patient Result 18.4 SECS (9.8-11.9)
[2020-11-08] MEDS: INSULIN LISPRO 100 UNIT/ML SUBCUT SCH ×4 (08:53→21:12)
[2020-11-08] MEDS: VENLAFAXINE XR 75 MG CAPSULE PO SCH (08:53)
[2020-11-08] MEDS: MUPIROCIN 2% OINT 22 GM TUBE TOP SCH ×3 (08:54→21:16)
[2020-11-08] MEDS: allopurinoL 100 MG TABLET PO SCH (08:54)
[2020-11-08] MEDS: DOCUSATE SODIUM 100 MG CAPSULE PO SCH ×2 (08:54→21:14)
[2020-11-08] MEDS: PANTOPRAZOLE 40 MG TABLET PO SCH (08:54)
[2020-11-08] MEDS: FUROSEMIDE 40 MG TABLET PO SCH ×2 (08:54→15:00)
[2020-11-08] MEDS: ASPIRIN EC 325 MG TABLET PO SCH (08:54)
[2020-11-08] MEDS: carvediloL 3.125 MG TABLET PO SCH ×2 (08:55→21:15)
[2020-11-08] MEDS: SACUBITRIL/VALSARTAN 49-51 MG TABLET PO SCH ×2 (08:55→21:14)
[2020-11-08 09:04] LABS: Hematocrit 37.3 VOL% (42.0-52.0); Hemoglobin 12.2 GM/DL (14.0-18.0); Immature Granulocytes % 0.4 %; Immature Granulocytes Absolute 0.03 #; Lymphocytes # 0.4 10*3/uL (1.4-4.0); Lymphocytes % 5.3 % (21.2-54.2); Mean Corpuscular HGB Conc 32.7 GM/DL (32-36); Mean Corpuscular Volume 98.7 FL (87-102); Mean Platelet Volume 10.5 FL (9.6-12.0); Monocytes % 4.2 % (1.7-12.7); Neutrophils % 90.1 % (38.7-73.9); Platelet Count 136 T/CUMM (130-400); Red Blood Count 3.78 MC/CUMM (3.8-5.5); Red Cell Distribution Width 15.3 % (9.3-17.3); White Blood Count 7.2 T/CUMM (4-12)
[2020-11-08 09:18] LABS: Calcium 8.5 MG/DL (8.5-10.1); Osmolality,Calculated 292.8 MOS/KG (273-304); Potassium 4.1 MMOL/L (3.5-5.1)
[2020-11-08 09:21] LABS: Band Neutrophils 1 % (0-10); Lymphocytes 2 % (20-55); Segmented Neutrophils 93 % (50-85); Total Cells Counted 100
[2020-11-08 09:22] LABS: Hypochromasia 1+; Microcytosis 1+; Ovalocytes Few; Platelet Estimate Adequate
[2020-11-08] MEDS: VANCOMYCIN INJ 1,500 MG in SODIUM CHLORIDE 0.9% 500 ML IV SCH (14:57)
[2020-11-08] MEDS ORDERED: WARFARIN 3 MG TABLET PO SCH (15:25)
[2020-11-08] MEDS: cefTRIAXone 1,000 MG in SODIUM CHLORIDE 0.9% 100 ML IV SCH (17:17)
[2020-11-08] MEDS: INSULIN GLARGINE 100 UNIT/ML SUBCUT SCH (21:12)
[2020-11-08] MEDS: ATORVASTATIN 80 MG TABLET PO SCH (21:14)
[2020-11-08] MEDS: rOPINIRole 1 MG TABLET PO SCH (21:15)
[2020-11-08] MEDS: SODIUM CHLORIDE 0.9% 1,000 ML IV SCH (23:26)
[2020-11-09] MEDS: ALBUTEROL/IPRATROPIUM 3 ML NEB RESP TX SCH ×4 (03:25→15:45)
[2020-11-09] MEDS: methylPREDNISolone SOD SUC 40 MG/1 ML VIAL IV SCH ×2 (05:08→16:05)
[2020-11-09 05:19] LABS: INR 2.1
[2020-11-09 05:20] LABS: PT Patient Result 22.4 SECS (9.8-11.9)
[2020-11-09] MEDS: INSULIN LISPRO 100 UNIT/ML SUBCUT SCH ×3 (07:27→16:05)
[2020-11-09 08:18] LABS: Basophils % 0.1 % (0.0-0.8); Eosinophils # 0.1 10*3/uL (0.0-0.87); Eosinophils % 1.3 % (0.00-10.9); Hematocrit 38.3 VOL% (42.0-52.0); Hemoglobin 12.2 GM/DL (14.0-18.0); Immature Granulocytes % 0.4 %; Immature Granulocytes Absolute 0.03 #; Lymphocytes # 1.1 10*3/uL (1.4-4.0); Lymphocytes % 13.9 % (21.2-54.2); Mean Corpuscular HGB Conc 31.9 GM/DL (32-36); Mean Corpuscular Volume 99.2 FL (87-102); Mean Platelet Volume 10.6 FL (9.6-12.0); Monocytes % 9.2 % (1.7-12.7); Neutrophils % 75.1 % (38.7-73.9); Platelet Count 148 T/CUMM (130-400); Red Blood Count 3.86 MC/CUMM (3.8-5.5); Red Cell Distribution Width 15.3 % (9.3-17.3); White Blood Count 7.8 T/CUMM (4-12)
[2020-11-09] MEDS: ASPIRIN EC 325 MG TABLET PO SCH (08:26)
[2020-11-09] MEDS: PANTOPRAZOLE 40 MG TABLET PO SCH (08:26)
[2020-11-09] MEDS: VENLAFAXINE XR 75 MG CAPSULE PO SCH (08:26)
[2020-11-09] MEDS: allopurinoL 100 MG TABLET PO SCH (08:26)
[2020-11-09] MEDS: MUPIROCIN 2% OINT 22 GM TUBE TOP SCH ×2 (08:27→16:05)
[2020-11-09] MEDS: carvediloL 3.125 MG TABLET PO SCH (08:27)
[2020-11-09] MEDS: FUROSEMIDE 40 MG TABLET PO SCH ×2 (08:27→16:04)
[2020-11-09] MEDS: SACUBITRIL/VALSARTAN 49-51 MG TABLET PO SCH (08:27)
[2020-11-09] MEDS: DOCUSATE SODIUM 100 MG CAPSULE PO SCH (08:27)
[2020-11-09 08:31] LABS: Calcium 8.1 MG/DL (8.5-10.1); Osmolality,Calculated 283.1 MOS/KG (273-304)
[2020-11-09] MEDS: WARFARIN 3 MG TABLET PO SCH (16:04)
[2020-11-09] MEDS: cefTRIAXone 1,000 MG in SODIUM CHLORIDE 0.9% 100 ML IV SCH (16:04)
[2020-11-09 16:28] VITALS: BP 126/68
== END 2020-11-09 16:52 | disposition home health service (06) | DRG 871 ==
LOC: N.ED 12:41 → N.EDINP 15:21 → N.5E 16:26
PROVIDERS: ADMIT Family Medicine; ATTEND Family Medicine